=== PATIENT | female | born 1950 | race Caucasian/White ===

== ENCOUNTER → 2016-08-03 | Outpatient (CLI) | payer BC, OTHER | LOC: FIMAGING 08:42 | DX: Z12.31 Encounter for screening mammogram for malignant neoplasm of breast (principal) | CPT/HCPCS: G0202 ==

== ENCOUNTER → 2017-02-22 | Outpatient (CLI) | payer OTHER | LOC: FIMAGING 07:19 | PROVIDERS: ATTEND Surgery | DX: K44.9 Diaphragmatic hernia without obstruction or gangrene (principal); K21.9 Gastro-esophageal reflux disease without esophagitis ==

== ENCOUNTER 2017-03-25 05:16 | Observation (INO) | payer OTHER ==
[2017-03-25] MEDS ORDERED: LIDOCAINE 1% 2 ML INJ ID PRN (05:49)
[2017-03-25] MEDS ORDERED: LR 1,000 ML IV ONE (05:49)
[2017-03-25] MEDS ORDERED: cefOXitin SODIUM 2 GM in D5W 100 ML IV ONE (06:00)
[2017-03-25] MEDS ORDERED: fentaNYL 250 MCG/5 ML INJ ONE (07:01)
[2017-03-25] MEDS ORDERED: PROPOFOL 200 MG/20 ML VIAL ONE (07:02)
[2017-03-25] MEDS ORDERED: SUGAMMADEX SODIUM 200 MG/2 ML VIAL IVP ONE (07:03)
[2017-03-25] MEDS ORDERED: DEXAMETHASONE 4 MG/ML VIAL ONE (07:03)
[2017-03-25] MEDS ORDERED: LIDOCAINE 2% 5 ML SDV ONE (07:03)
[2017-03-25] MEDS ORDERED: ROCURONIUM 100 MG/10 ML VIAL ONE (07:03)
[2017-03-25] MEDS ORDERED: MIDAZOLAM 2 MG/2 ML VIAL IVP ONE (07:04)
--- NOTE | 2017-03-25 07:05 | PDANEPAE ---
ANE History of Present Illness arelis RASMUSSEN Past Medical History - Cardiovascular History Hx Hypertension: Yes Hx Arrhythmias: No Hx Chest Pain: No Hx Coronary Artery / Peripheral Vascular Disease: No Hx CHF / Valvular Disease: No Hx Palpitations: No Cardiovascular History Comment: pcp monitors bp meds - Pulmonary History Hx COPD: Yes Hx Asthma/Reactive Airway Disease: Yes Hx Recent Upper Respiratory Infection: No Hx Oxygen in Use at Home: No Hx Sleep Apnea: Yes Sleep Apnea Screening Result - Last Documented: Positive Pulmonary History Comment: LASHONDA POS- instructed pt to bring cpap to hospital. see's dr crockett- unsure if she has asthma or copd - Neurologic History Hx Cerebrovascular Accident: No Hx Seizures: No Hx Dementia: No Neurologic History Comment: LOWER BACK - DDD - Endocrine History Hx Diabetes: No Hypothyroid: Yes Obesity: yes Endocrine History Comment: hypothyroidism - Renal History Hx Renal Disorders: Yes Renal History Comment: KIDNEY STONE X1 - Liver History Hx Hepatic Disorders: No - Neurological & Psychiatric Hx Hx Neurological and Psychiatric Disorders: No Neurological / Psychiatric History Comment: ANXIETY - Cancer History Hx Cancer: Yes Cancer History Comment: BASAL CELL SKIN CA - Congenital Disorder History Hx Congenital Disorders: No - GI History Hx Gastrointestinal Disorders: Yes Gastrointestinal History Comment: REFLUX. hx of POLYPS. hx of HEMORRHOIDS - Other Health History Other Health History: wears glasses for close up only - Chronic Pain History Chronic Pain: No - Surgical History Prior Surgeries: left tka 2015. TUBAL LIGATION. LAP FOR ENDOMETRIOSIS. X 2 HERNIA. BASAL CELL CA REM NOSE. LI FOOT NEUROMA REM. KIMBERLEY. KIDNEY STONE, URETER STENT AND REM ANE Review of Systems Review of Systems: - Exercise capacity METS (RN): 4 METS ANE Patient History - Allergies Allergies/Adverse Reactions: No Known Allergies Allergy (Verified 03/21/17 11:59) - Home Medications Home Medications: RX: Estradiol [Estradiol 1 MG (*)] 0.0375 mg PO DAILY 11/30/14 [Last Taken 03/21] RX: Levothyroxine [Synthroid 125 mcg (*)] 112 mcg PO DAILY06 11/30/14 [Last Taken 03/25/17 03:00] RX: Omeprazole [Prilosec 20 mg] 20 mg PO DAILY 11/30/14 [Last Taken 03/25/17 03: 00] RX: Valsartan [Diovan (*)] 80 mg PO DAILY 08/18/15 [Last Taken 03/25/17 03:00] Aspirin 81mg (*) 03/21/17 [Last Taken 03/21/17] Herbals/Supplements -Info Only 03/21/17 [Last Taken 03/21/17] Symbicort 160-4.5 Mcg Inh (*) IH 03/21/17 [Last Taken 03/25/17 03:00] - NPO status NPO Since - Liquids (Date): 03/25/17 NPO Since - Liquids (Time): 03:00 NPO Since - Solids (Date): 03/24/17 NPO Since - Solids (Time): 19:00 - Smoking Hx Smoking Status: Former smoker - Family Anes Hx Family Hx Anesthesia Complications: NONE ANE Labs/Vital Signs - Vital Signs Blood Pressure: 135/76 Heart Rate: 84 Respiratory Rate: 16 O2 Sat (%): 94 Height: 157.48 cm Weight: 77.111 kg ANE Physical Exam - Airway Neck exam: FROM Mallampati Score: Class 1 Mouth exam: normal dental/mouth exam - Pulmonary Pulmonary: no respiratory distress - Cardiovascular Cardiovascular: regular rate and rhythym - ASA Status ASA Status: III ANE Anesthesia Plan Anesthesia Plan: general endotracheal anesthesia
[2017-03-25] MEDS ORDERED: BUPIVACAINE 0.5% 30 ML SDV ONE (07:10)
[2017-03-25] MEDS ORDERED: HEPARIN 1000 UNIT/1 ML MDV ONE (07:10)
[2017-03-25] MEDS ORDERED: ceFAZolin 1 GM/5 ML SYR ONE (07:11)
[2017-03-25] MEDS ORDERED: METOCLOPRAMIDE 10 MG/2 ML VIAL IVP PRN (08:46)
[2017-03-25] MEDS ORDERED: LR 500 ML IV PRN (08:46)
[2017-03-25] MEDS ORDERED: ONDANSETRON 4 MG/2 ML VIAL IVP PRN ×2 (08:46→09:11)
[2017-03-25] MEDS ORDERED: ACETAMINOPHEN 500 MG TAB PO PRN (08:46)
[2017-03-25] MEDS ORDERED: HYDROCODONE/APAP 5/325 TAB PO PRN ×2 (08:46→09:11)
[2017-03-25] MEDS ORDERED: ALBUTEROL 3 ML DEYVIAL IH PRN (08:46)
[2017-03-25] MEDS ORDERED: OXYCODONE/APAP 5/325 TAB PO PRN (08:46)
[2017-03-25] MEDS ORDERED: NALOXONE HCL 0.4 MG/ML INJ IVP PRN ×2 (08:46→08:47)
[2017-03-25] MEDS ORDERED: PROMETHAZINE HCL 25 MG/ML INJ IVP PRN (08:46)
[2017-03-25] MEDS ORDERED: HYDROmorphone HCL/NS/PF 0.4 MG/2 ML SYR IVP PRN (09:11)
--- NOTE | 2017-03-25 09:15 | PDHPUP ---
History & Physical Update H&P update statement: This history and physical update is based on an assessment of the patient which was completed after admission or registration (within 24 hours), but prior to the surgery/procedure. H&P update: H&P reviewed & patient examined, no change in patient's condition since H&P completed
--- NOTE | 2017-03-25 09:17 | POSTOPPROG ---
Post Op Note Date of Operation: 03/25/17 Surgeon: John Saunders Dealer Accounts Investigator: Dior Jama Anesthesiologist: Nakul Ahuja Anesthesia: GET(General Endotracheal) Pre-op Diagnosis: hiatal hernia, GERD, RLQ pain Post-op Diagnosis: same Procedure: lap hiatal hernia repair with arelis fundoplication and RLQ exploration Findings: moderate hiatal hernia, ~1/4-1/3 stomach in chest, RLQ adhesions Inf/Abcess present in the surg proc area at time of surgery?: No EBL: Minimal Complications: none Specimen(s): none
[2017-03-25] MEDS ORDERED: HYDROmorphONE/DILAUDID 1 MG/ML INJ ONE (09:22)
[2017-03-25] MEDS ORDERED: ONDANSETRON 4 MG/2 ML VIAL ONE (09:22)
[2017-03-25] MEDS ORDERED: fentaNYL 100 MCG/2 ML INJ ONE (09:22)
--- NOTE | 2017-03-25 09:22 | POSTANESTH ---
Post Anesthetic Evaluation Cardiovascular Status: Normal, Stable Respiratory Status: Normal, Stable Level of Consciousness/Mental Status: Can Participate in Eval Pain Control: Adequate, Prn Tx Ordered Nausea/Vomiting Control: Adequate, Prn Tx Ordered Complications Possibly Related to Anesthesia: None Noted
[2017-03-25] MEDS: fentaNYL 100 MCG/2 ML INJ IVP PRN ×2 (09:27→11:28)
[2017-03-25] MEDS: HYDROmorphONE/DILAUDID 1 MG/ML INJ IVP PRN ×2 (09:29→09:55)
[2017-03-25] MEDS ORDERED: ALBUTEROL 3 ML DEYVIAL ONE (09:42)
[2017-03-25] MEDS ORDERED: LORazepam 2 MG/ML INJ ONE (10:58)
[2017-03-25] MEDS ORDERED: LORazepam 2 MG/ML INJ IV ONE (11:00)
[2017-03-25] MEDS: NS W/ 20 KCl/L 1,000 ML IV SCH ×2 (11:54→22:24)
[2017-03-25] MEDS: KETOROLAC 15 MG/1 ML SDV IVP SCH ×3 (11:54→23:33)
[2017-03-25] MEDS: PROMETHAZINE HCL 25 MG/ML INJ IVP PRN ×2 (14:14→22:25)
[2017-03-25] MEDS: BUDESONIDE/FORMOTEROL 160/4.5 60 PUFFS/MDI IH SCH (21:09)
--- NOTE | 2017-03-25 21:27 | SOAPPROG ---
SODANAY Progress Note Assessment/Plan: Assessment: sp lap arelis/ doing well/ afebrile/ tolerating clears Plan:advance diet and home soon 03/25/17 21:25 Objective: Vital Signs Temp Pulse Resp BP Pulse Ox 36.7 C 81 16 93/59 L 93 03/25/17 19:48 03/25/17 19:48 03/25/17 19:48 03/25/17 19:48 03/25/17 19:48 03/24/17 03/25/17 03/26/17 05:59 05:59 05:59 Intake Total 1550 Output Total 75 Balance 1475 ICD10 Worksheet Patient Problems: Problems Problem Status Onset Primary osteoarthritis of left knee Acute
[2017-03-26] MEDS ORDERED: LEVOTHYROXINE 112 MCG TAB PO SCH (06:00)
[2017-03-26 06:25] LABS: ANION GAP 9 mEq/L (8-16); CALCIUM 8.2 mg/dL (8.5-10.4); CARBON DIOXIDE 24 mEq/l (22-31); CHLORIDE 111 mEq/L (97-110); CREATININE 0.7 mg/dL (0.6-1.0); GLOMERULAR FILTRATION RATE > 60; GLUCOSE 94 mg/dL (70-100); POTASSIUM 4.3 mEq/L (3.5-5.2); SODIUM 144 mEq/L (134-144)
[2017-03-26] MEDS: KETOROLAC 15 MG/1 ML SDV IVP SCH ×2 (06:26→11:50)
[2017-03-26 06:35] LABS: HEMATOCRIT 37.3 % (38.0-47.0); HEMOGLOBIN 12.9 g/dL (12.6-16.3)
[2017-03-26 08:13] VITALS: BP 97/56; RESP 14; TEMP 98
[2017-03-26] MEDS: BUDESONIDE/FORMOTEROL 160/4.5 60 PUFFS/MDI IH SCH (08:22)
[2017-03-26 08:28] VITALS: PULSE 80; O2SAT 93
[2017-03-26] MEDS ORDERED: VALSARTAN 80 MG TAB PO SCH (09:00)
[2017-03-26] MEDS ORDERED: PANTOPRAZOLE SODIUM 40 MG TAB PO SCH (09:00)
--- NOTE | 2017-03-26 11:07 | SOAPPROG ---
SHELL Progress Note Assessment/Plan: Assessment/Plan: 66 Y F s/p lap hiatal hernia repair and arelis fundoplication, also, exploration of RLQ due to pain with findings of adhesions. POD#1. Doing well. Seen with Dr. Saunders. Advance diet. Probable d/c to home today. Also, discussed lysis of adhesions for RLQ findings. Could do this if depending upon how limiting her pain is. May not resolve her pain. She will think about it and we can discuss it further in the office if she'd like. S: minimal pain. tolerating clears O: alert, nad mmm no wob inc cdi abd soft 03/26/17 11:03 Objective: Vital Signs Temp Pulse Resp BP Pulse Ox 36.7 C 80 14 97/56 L 93 03/26/17 08:10 03/26/17 08:27 03/26/17 08:27 03/26/17 08:10 03/26/17 08:27 Laboratory Results 03/26/17 05:15 03/26/17 05:15 03/25/17 03/26/17 03/27/17 05:59 05:59 05:59 Intake Total 3771 Output Total 75 Balance 3696 ICD10 Worksheet Patient Problems: Problems Problem Status Onset Primary osteoarthritis of left knee Acute
[2017-03-26] MEDS ORDERED: ASPIRIN 81 MG CHEWABLE TAB PO SCH (12:00)
--- NOTE | 2017-03-26 16:50 | ASDISCHSUM ---
Discharge Information Plan Status:Home with No Needs Medically Cleared to Leave:03/25/2017 Discharge Date:03/26/2017 11:50 AM CM D/C Disposition: ADT D/C Disposition:Home, Routine, Self-Care Projected Discharge Date:03/26/2017 12:00 AM Transportation at D/C: Discharge Delay Reason: Follow-Up Date:03/26/2017 12:00 AM Discharge Slot: Final Diagnosis: Placement Information Patient Contact Information Contact Name:JOLYNN Relationship: Address:[address] Work Phone: City:[place] Alternate Phone: [facility]/Zip Code:[place] [address] Email: Financial Information Financial Class:Medicare Advantage Plans Primary Plan Desc:[facility] ADVANTAGE PLANS Primary Plan Number:[id number] Secondary Plan Desc: Secondary Plan Number: Assessment Information Intervention Information Intervention Type:*BOB-Signed Date of Service:03/26/2017 11:26 AM Patient Type:Observation Staff Member:Lori Quinn Hours: Discipline: Severity: Comment:
[2017-03-27] MEDS ORDERED: ENOXAPARIN 40 MG/0.4 ML SYR SC SCH (09:00)
[2017-03-31] MEDS ORDERED: ESTRADIOL VIVELLE 0.0375 MG PATCH TD SCH (08:00)
== END 2017-03-26 11:50 | disposition home or self-care (01) ==
LOC: F3E 05:16
PROVIDERS: ADMIT Surgery; ATTEND Surgery
PROC: 0DV44ZZ Restriction of Esophagogastric Junction, Percutaneous Endoscopic Approach (ICD-10-PCS; principal; 2017-03-25 07:15)
PROC: 0DJW4ZZ Inspection of Peritoneum, Percutaneous Endoscopic Approach (ICD-10-PCS; principal; 2017-03-25 07:15)
DX: K44.9 Diaphragmatic hernia without obstruction or gangrene (principal); N73.6 Female pelvic peritoneal adhesions (postinfective); R10.31 Right lower quadrant pain; K21.9 Gastro-esophageal reflux disease without esophagitis; I10 Essential (primary) hypertension; K58.0 Irritable bowel syndrome with diarrhea; F41.9 Anxiety disorder, unspecified; E66.9 Obesity, unspecified; Z68.38 Body mass index [BMI] 38.0-38.9, adult; E03.9 Hypothyroidism, unspecified; M85.80 Other specified disorders of bone density and structure, unspecified site; G47.33 Obstructive sleep apnea (adult) (pediatric); Z79.82 Long term (current) use of aspirin; Z87.891 Personal history of nicotine dependence; Z87.442 Personal history of urinary calculi; Z82.49 Family history of ischemic heart disease and other diseases of the circulatory system; Z96.652 Presence of left artificial knee joint
CPT/HCPCS: 43280; G0378; J0690; J0694; J1100; J1170; J1885; J2060; J2250; J2405; J2550; J2704; J3010

== ENCOUNTER → 2017-07-15 | Outpatient (CLI) | payer OTHER | LOC: FIMAGING 09:37 | PROVIDERS: ATTEND Internal Medicine | DX: M50.323 Other cervical disc degeneration at C6-C7 level (principal) ==

== ENCOUNTER → 2017-08-16 | Outpatient (CLI) | payer OTHER | LOC: FIMAGING 11:59 | PROVIDERS: ATTEND Internal Medicine | DX: Z12.31 Encounter for screening mammogram for malignant neoplasm of breast (principal) ==

== ENCOUNTER 2017-12-10 05:52 | Observation (INO) | payer OTHER ==
--- NOTE | 2017-12-02 18:08 | GHP ---
[f rep st] PREOP HISTORY AND PHYSICAL DATE OF ADMISSION: 12/10/2017 She will be an a.m. admission for surgery on December 10, 2017. PROBLEM: Right knee severe patellofemoral arthritis. HISTORY OF PRESENT ILLNESS: The patient is a 67-year-old woman admitted for a right total knee arthr oplasty. I did her left total knee arthroplasty in December of 2016. She has had a very good resul t. She is having progressive severe pain in her right knee. Her pain is worse going up and down sta irs. Her activities are very restricted. She is admitted for a right total knee arthroplasty. PAST MEDICAL HISTORY: She is treated for hypothyroidism and hormone replacement therapy. No history of heart disease, DVT, hepatitis, MRSA staph infections, or bleeding problems. She has sleep apnea and uses a CPAP machine. CURRENT MEDICATIONS: One baby aspirin a day. She will stop that in preparation for her surgery. Junie markham is also taking estrogen by a transdermal patch, fluconazole for nasal allergies, levothyroxine 112 mcg per day, omeprazole 20 mg a day for gastroesophageal reflux disease. ALLERGIES: Drug allergies: None. Metal allergy: None. Latex allergy: None. SOCIAL HISTORY: The patient is . She is retired. She does not smoke cigarettes or drink alc ohol. FAMILY HISTORY: Positive for cancer, arthritis, and heart disease. PHYSICAL EXAMINATION: GENERAL: Height 5 feet 1 inch, weight 196 pounds, BMI 37. EYES: Conjunctiva e and sclerae are clear. Pupils are round and reactive. MOUTH: Good oral hygiene. No loose teeth. CHEST: Clear. HEART: Regular rhythm. No murmurs. EXTREMITIES: Pertinent findings are limited to her right knee. She has a small effusion. Full extension to 120 degrees of flexion. Coarse hurtado llofemoral crepitation with active knee extension. Her ligaments are stable. Films show very severe degenerative arthritis in the right patellofemoral joint. She has erosion of the lateral facet of her patella. Her left total knee looks good. IMPRESSION: On admission: 1. Right knee degenerative arthritis with severe patellofemoral arthritis. She is prepared for a ri ght total knee arthroplasty. 2. Three years status post left total knee arthroplasty with a good result. 3. Treatment for hypothyroidism. 4. Obesity. PLAN: She will undergo a right total knee arthroplasty. The surgery has been described to her, incl uding the risks, complications, expectations, and recovery time. I stressed the importance of postop erative physical therapy. I have advised her that 75% of people are very happy with the results of a total knee replacement, but a small percentage of people are not satisfied. This is usually because of persistent pain. All her questions have been answered, and she consents to surgery. She would l stella to be discharged on the day of surgery. /[id number]/MODL
[2017-12-10] MEDS ORDERED: POVIDONE-IODINE 20 ML in SODIUM CL IRRIG SOLUTION 500 ML IRR ONE (06:00)
[2017-12-10] MEDS ORDERED: ROPIVACAINE 0.2% 80 MG, EPINEPHrine 0.2 MG, KETOROLAC TROMETHAMINE 30 MG in SYRINGE 0 ML IU ONE (06:00)
[2017-12-10] MEDS ORDERED: TRANEXAMIC ACID 1,000 MG in NS 100 ML IV ONE (06:00)
[2017-12-10] MEDS ORDERED: TRANEXAMIC ACID 3,000 MG in NS (SYRINGE) 50 ML IRR ONE (06:00)
[2017-12-10] MEDS ORDERED: GABAPENTIN 300 MG CAP PO ONE (06:04)
[2017-12-10] MEDS ORDERED: ACETAMINOPHEN 325 MG TAB PO ONE (06:04)
[2017-12-10] MEDS ORDERED: ceFAZolin 2 GM/DEXTROSE 100 ML IV ONE (06:04)
[2017-12-10] MEDS ORDERED: FAMOTIDINE 20 MG TAB PO ONE (06:04)
[2017-12-10] MEDS ORDERED: ONDANSETRON 4 MG/2 ML VIAL IVP ONE (06:04)
[2017-12-10] MEDS ORDERED: DEXAMETHASONE 4 MG/ML VIAL IVP ONE (06:04)
[2017-12-10] MEDS ORDERED: LIDOCAINE 1% 2 ML INJ ID PRN (06:05)
[2017-12-10] MEDS ORDERED: LR 1,000 ML IV ONE (06:05)
[2017-12-10] MEDS ORDERED: LIDOCAINE 1% 2 ML INJ ONE (06:17)
[2017-12-10] MEDS ORDERED: TRANEXAMIC ACID 3,000 MG/50 ML BAG IRR ONE (06:40)
[2017-12-10] MEDS ORDERED: VANCOMYCIN 1 GM VIAL ONE (06:40)
[2017-12-10] MEDS ORDERED: ceFAZolin 1 GM/5 ML SYR ONE (06:41)
[2017-12-10] MEDS ORDERED: SCOPOLAMINE HYDROBROMIDE 1 MG/3 DAYS PATCH TD ONE (07:01)
--- NOTE | 2017-12-10 07:04 | PDHPUP ---
History & Physical Update H&P update statement: This history and physical update is based on an assessment of the patient which was completed after admission or registration (within 24 hours), but prior to the surgery/procedure. H&P update: H&P reviewed & patient examined
[2017-12-10] MEDS ORDERED: MIDAZOLAM 2 MG/2 ML VIAL ONE (07:05)
[2017-12-10] MEDS ORDERED: fentaNYL 100 MCG/2 ML INJ ONE (07:07)
[2017-12-10] MEDS ORDERED: PROPOFOL/EMULSION 500 MG/50 ML BOTTLE IV ONE (07:07)
[2017-12-10] MEDS ORDERED: ePHEDrine SULFATE 25 MG/5 ML SYR ONE (07:30)
--- NOTE | 2017-12-10 07:45 | PDANEPAE ---
ANE Past Medical History - Cardiovascular History Hx Hypertension: Yes Hx Arrhythmias: No Hx Chest Pain: No Hx Coronary Artery / Peripheral Vascular Disease: No Hx CHF / Valvular Disease: No Hx Palpitations: No Cardiovascular History Comment: pcp monitors bp meds - Pulmonary History Hx COPD: Yes Hx Asthma/Reactive Airway Disease: Yes Hx Recent Upper Respiratory Infection: No Hx Oxygen in Use at Home: No Hx Sleep Apnea: Yes Sleep Apnea Screening Result - Last Documented: Positive Pulmonary History Comment: LASHONDA POS- instructed pt to bring cpap to hospital. see's dr crockett- unsure if she has asthma or copd - Neurologic History Hx Cerebrovascular Accident: No Hx Seizures: No Hx Dementia: No Neurologic History Comment: LOWER BACK - DDD - Endocrine History Hx Diabetes: No Endocrine History Comment: hypothyroidism - Renal History Hx Renal Disorders: Yes Renal History Comment: KIDNEY STONE X1 - Liver History Hx Hepatic Disorders: No - Neurological & Psychiatric Hx Hx Neurological and Psychiatric Disorders: No Neurological / Psychiatric History Comment: ANXIETY - Cancer History Hx Cancer: Yes Cancer History Comment: BASAL CELL SKIN CA - Congenital Disorder History Hx Congenital Disorders: No - GI History Hx Gastrointestinal Disorders: Yes Gastrointestinal History Comment: REFLUX. hx of POLYPS. hx of HEMORRHOIDS - Other Health History Other Health History: wears glasses for close up only - Chronic Pain History Chronic Pain: No - Surgical History Prior Surgeries: left tka 2014. TUBAL LIGATION. LAP FOR ENDOMETRIOSIS. X 2 HERNIA. BASAL CELL CA REM NOSE. LI FOOT NEUROMA REM. KIMBERLEY. KIDNEY STONE, URETER STENT AND REM ANE Review of Systems Review of Systems: - Exercise capacity METS (RN): 4 METS ANE Patient History - Allergies Allergies/Adverse Reactions: No Known Allergies Allergy (Verified 03/21/17 11:59) - Home Medications Home Medications: Omeprazole [Prilosec 20 mg] 20 mg PO DAILY 11/30/14 [Last Taken 12/03/17] Aspirin [Aspirin 81mg (*)] 81 mg PO DAILY@12 03/21/17 [Last Taken 12/03/17] Budesonide/Formoterol 160/4.5 [Symbicort 160-4.5 Mcg Inh (*)] 2 puffs IH BID 10/29 [Last Taken 12/07/17] Herbals/Supplements -Info Only 1 ea PO DAILY 03/21/17 [Last Taken 12/03/17] Estradiol [Vivelle-Dot 0.0375MG (*)] 0.0375 mg TD GOODMAN@08 03/25/17 [Last Taken ] Levothyroxine [Synthroid 112 mcg (*)] 112 mcg PO DAILY06 03/25/17 [Last Taken ] Multivitamins [Multivitamin (*)] 1 each PO DAILY 03/25/17 [Last Taken 12/03/17] Fortine-3 Fatty Acids [Fish Oil 1000 mg (*)] 1,000 mg PO DAILY 03/25/17 [Last Taken 12/03/17] - NPO status NPO Since - Liquids (Date): 12/09/17 NPO Since - Liquids (Time): 20:00 NPO Since - Solids (Date): 12/10/17 NPO Since - Solids (Time): 20:00 - Smoking Hx Smoking Status: Former smoker - Family Anes Hx Family Hx Anesthesia Complications: NONE ANE Labs/Vital Signs - Vital Signs Height: 154.94 cm Weight: 76.657 kg ANE Physical Exam - Airway Mallampati Score: Class 2 - ASA Status ASA Status: III ANE Anesthesia Plan Anesthesia Plan: spinal Regional Anesthesia: adductor canal FNB Urgent/Emergent Case: Cathryn merrill completed preop but documented later for safe timely pt care
[2017-12-10] MEDS ORDERED: PROPOFOL 200 MG/20 ML VIAL ONE (08:30)
[2017-12-10] MEDS ORDERED: ROPIVACAINE HCL 150 MG/30 ML INJ ONE (08:42)
--- NOTE | 2017-12-10 09:01 | POSTOPPROG ---
Post Op Note Date of Operation: 12/10/17 Surgeon: Eloy Warner Chemical Processor: Manasa Anesthesiologist: Dr. Mamadou Harman Post-op Diagnosis: Right knee severe arthritis Procedure: Right total knee arthroplasty Inf/Abcess present in the surg proc area at time of surgery?: No EBL: 50-100 (Adductor canal block in PACU)
[2017-12-10] MEDS ORDERED: NS 500 ML IV PRN (09:09)
[2017-12-10] MEDS ORDERED: CYCLOBENZAPRINE 10 MG TAB PO PRN (09:09)
[2017-12-10] MEDS ORDERED: MAGNESIUM HYDROXIDE 30 ML UDCUP PO PRN (09:09)
[2017-12-10] MEDS ORDERED: BISACODYL 10 MG SUPP PR PRN (09:09)
[2017-12-10] MEDS ORDERED: ONDANSETRON DISINTEGRATING 4 MG TAB PO PRN (09:09)
[2017-12-10] MEDS ORDERED: METOCLOPRAMIDE 10 MG/2 ML VIAL IVP PRN (09:09)
[2017-12-10] MEDS ORDERED: diphenhydrAMINE 25 MG CAP PO PRN (09:09)
[2017-12-10] MEDS ORDERED: PROMETHAZINE HCL 25 MG/ML INJ IVP PRN ×2 (09:09→09:16)
[2017-12-10] MEDS ORDERED: DIPHENOXYLATE/ATROPINE LOMOTIL 1 TAB PO PRN (09:09)
[2017-12-10] MEDS ORDERED: ONDANSETRON 4 MG/2 ML VIAL IVP PRN ×2 (09:09→09:16)
[2017-12-10] MEDS ORDERED: POLYETHYLENE GLYCOL 3350 17 GM PKT PO PRN (09:09)
[2017-12-10] MEDS ORDERED: LACTULOSE 20 GM/30 ML UDCUP PO PRN (09:09)
[2017-12-10] MEDS ORDERED: TEMAZEPAM 15 MG CAP PO PRN (09:09)
[2017-12-10] MEDS ORDERED: oxyCODONE IR 5 MG TAB PO PRN (09:09)
[2017-12-10] MEDS ORDERED: PROMETHAZINE HCL 25 MG SUPPR PR PRN (09:09)
[2017-12-10] MEDS ORDERED: traMADol 50 MG TAB PO PRN (09:09)
[2017-12-10] MEDS ORDERED: fentaNYL 100 MCG/2 ML INJ IVP PRN (09:16)
[2017-12-10] MEDS ORDERED: NALOXONE HCL 0.4 MG/ML INJ IVP PRN (09:16)
[2017-12-10] MEDS ORDERED: LR 500 ML IV PRN (09:16)
--- NOTE | 2017-12-10 09:17 | POSTANESTH ---
Post Anesthetic Evaluation Cardiovascular Status: Normal, Stable Respiratory Status: Similar to Pre-op Cond. Level of Consciousness/Mental Status: Can Participate in Eval Pain Control: Adequate, Prn Tx Ordered Nausea/Vomiting Control: Adequate, Prn Tx Ordered Complications Possibly Related to Anesthesia: None Noted
[2017-12-10] MEDS ORDERED: LR 1,000 ML IV SCH (09:30)
--- NOTE | 2017-12-10 09:45 | GOP ---
[f rep st] OPERATIVE REPORT DATE OF OPERATION: 12/10/2017 SURGEON: Eloy Warner MD ENGINE TURNER: JOSE Valerio. Praneeth Sapp CFA. ANESTHESIA: Combination of Marcaine, spinal, IV sedation, and adductor canal block. ANESTHESIOLOGIST: Mamadou Harman MD. PREOPERATIVE DIAGNOSIS: Right knee severe degenerative arthritis primarily involving the patellofemo ral joint. POSTOPERATIVE DIAGNOSIS: Right knee severe degenerative arthritis primarily involving the patellofem oral joint. PROCEDURE PERFORMED: A right total knee arthroplasty, cemented, Marrero and Nephew Journey II, posteri or stabilized. FINDINGS: DESCRIPTION OF PROCEDURE: The patient was given 2 g of IV Ancef preoperatively within 60 minutes of surgery. She also received IV tranexamic acid at a dose of 1000 mg. She was placed on the operating room table and given spinal anesthesia with Marcaine by Dr. Harman. She was then placed supine and given IV sedation. A Segundo catheter was not used. She wore a stocking and SCD on the nonoperative l eg. A bolster was placed under the right hip to prevent excessive external rotation of the leg. Her right lower extremity was prepped with ChloraPrep from the upper thigh tourniquet to the tips of the toes. It was draped free using sterile sheets, stockinette, and Ioban plastic adhesive drape. The lower leg was wrapped with compressive Coban. The leg was exsanguinated with elevation and a 6-inch compressive wrap, and the pneumatic tourniquet was inflated to 300 mmHg. The World Health Organization time-out was performed to verify the correct patient identity and the c orrect surgical side and site. The [place] time-out was also performed. The Md7ayo leg holding device was sterilely attached to the operating room table and used throughout the procedure to help position the knee. A slightly curved midline incision was made centered on the patella. Subcutaneous tissues were sharply divided, and hemostasis was obtained using electrocauter y. A subcutaneous flap was developed, and the capsule and synovium were opened in a medial parapatel lar fashion. Extensive degenerative changes were present in the patellofemoral joint and in the late ral compartment. The lateral facet of her patella was significantly eroded. The medial capsule and periosteum were elevated off the rim of the medial tibial plateau around to the posteromedial corner. There was very limited release of her medial collateral ligament. In order to improve exposure, her patella was prepared first. The original thickness of the patella was measured. Peripheral osteophytes were removed. I cut a flat surface on the back of the patella. Because of the erosion on the lateral facet, I did not remove any additional bone from the lateral facet, but simply flattened the surface. She was sized for a 35 mm round resurfacing component. I r emoved enough bone from the patella such that the remaining bone plus the thickness of the patellar c omponent recreated the original thickness of the patella. A composite thickness was 21 mm. The intramedullary alignment guide system was used to set up the distal femoral cut. The distal femu r was cut in 6 degrees of valgus. She did not have a preoperative flexion contracture, and I did not make a +2 mm cut on the distal femur. The sizing jig was used to determine proper femoral sizing. She was a true size 4 without a shift. The 5-in-1 cutting block was applied, and the anterior and po sterior condylar cuts and chamfer cuts were made. The final jig was used to remove the central porti on of the distal femur to accommodate the posterior stabilized femoral component. I was careful to d etermine proper rotation by referencing off Whitesides line and other bony landmarks. Each cut was c hecked for accuracy before and after it was made. Her femur was sized for a size 4 posterior stabili zed component. Next, the tibia was prepared. The proximal tibial cut was made using the extramedullary alignment gu arely system. The cut was made in a few degrees of posterior slope. I was careful to achieve proper v arus valgus alignment and proper rotation. The posterior compartment was cleared of meniscal remnant s. Osteophytes were removed from the back of her femoral condyles. I checked the flexion, extension gaps, and they were equal, balanced and rectangular. The tibia was sized for a size 3 component. W ith the trial components in place, I selected a 10 mm trial polyethylene posterior stabilized tibial insert. The knee came to full extension and flexed to 125 degrees. The collateral ligaments were st able and balanced in 90 degrees of flexion and full extension. The trial patellar button was applied , and tracking was checked. She had a definite tendency for lateral subluxation and lateral tilt. I went ahead and did a limited lateral release. Following this, her tracking was much better. 40 mL of the joint anesthetic cocktail were injected into the posterior capsule, the periarticular st ructures, the quadriceps muscle and tendon areas, and the subcutaneous tissues along the skin edges. The surfaces were prepared for cementing. They were carefully cleaned with the pulsating lavage irri gation and thoroughly dried. The CarboJet device was used to blow dry the cancellous surfaces. A do uble batch of high viscosity methylmethacrylate cement with 2 g of powdered vancomycin added was mixe d. While it was still in a doughy state, all 3 components were cemented in place. Excess cement was removed before it hardened. The 10 mm tibial trial insert was re-tried and was the proper thickness. The actual component was in serted and locked into place. The knee was thoroughly irrigated 1 final time with a dilute Betadine solution. The tourniquet was deflated and the total tourniquet time was 48 minutes. 50 cc of tranex amic acid was instilled into the joint. The wound was packed with a lap and the knee was wrapped wit h a 6 inch SHANNON wrap for about 3 or 4 minutes. The vastus medialis portion of the extensor mechanism was repaired with several interrupted figure-of -eight #2 FiberWire sutures. The capsule and synovium were closed first with multiple interrupted fi [id number] 0 PDS sutures followed by a running, #2 barbed Ethicon Stratafix PDO suture. The subcu taneous tissues were closed with a running 0 barbed Ethicon Stratafix Monoderm suture. The skin was closed with a running 3-0 barbed Ethicon Stratafix Monoderm subcuticular suture. The skin was sealed with half-inch Steri-Strips. The wound was covered with a large Mepilex water-proof dressing and a 6-inch compressive wrap. A long-leg KRISTI stocking and SCD were applied, followed by the cooling devic e. The patient wore a stocking and SCD on the opposite leg during the procedure. The sacral Mepilex dressing was applied. I used a size 4 cemented Marrero and Nephew Oxinium posterior stabilized femoral component, a size 3 ce mented tibial base plate, a 10 mm posterior stabilized tibial insert, and a 35 mm cemented round all- polyethylene resurfacing patellar component. The estimated blood loss following deflation of the tourniquet was about 100 cc. The sponge and needle count were correct on 2 occasions. She was awakened from anesthesia, transferred to her hospital [facility], and taken to PACU in satisfacto ry condition. There were no recognized intraoperative complications. In the PACU, for additional po stoperative pain control, Dr. Harman performed an adductor canal block. Marquez Peña and Praneeth Sapp acted as surgical assistants. Their assistance was a medical necess ity for safe completion of the procedure. /[id number]/MODL
[2017-12-10] MEDS: KETOROLAC 15 MG/1 ML SDV IVP SCH ×2 (11:35→17:30)
[2017-12-10] MEDS: ACETAMINOPHEN 325 MG TAB PO SCH ×2 (11:35→17:29)
[2017-12-10] MEDS ORDERED: ceFAZolin 2 GM/DEXTROSE 100 ML IV SCH (15:00)
[2017-12-10 15:04] VITALS: BP 117/71
[2017-12-10] MEDS ORDERED: ASPIRIN 325 MG TAB PO SCH (21:00)
[2017-12-10] MEDS ORDERED: SENNOSIDES/DOCUSATE SODIUM TAB PO SCH (21:00)
[2017-12-10] MEDS ORDERED: FAMOTIDINE 20 MG TAB PO SCH (21:00)
[2017-12-10] MEDS ORDERED: BUDESONIDE/FORMOTEROL 160/4.5 60 PUFFS/MDI IH SCH (21:00)
[2017-12-11] MEDS ORDERED: LEVOTHYROXINE 112 MCG TAB PO SCH (06:00)
[2017-12-11] MEDS ORDERED: PANTOPRAZOLE SODIUM 40 MG TAB PO SCH (09:00)
[2017-12-11] MEDS ORDERED: FERROUS SULFATE 140 MG TAB.ER PO SCH (09:00)
[2017-12-15] MEDS ORDERED: ESTRADIOL VIVELLE 0.0375 MG PATCH TD SCH (08:00)
== END 2017-12-10 17:59 | disposition home or self-care (01) ==
LOC: F3N 05:52
PROVIDERS: ADMIT Orthopaedic Surgery; ATTEND Orthopaedic Surgery
PROC: 0SRC0JZ Replacement of Right Knee Joint with Synthetic Substitute, Open Approach (ICD-10-PCS; principal; 2017-12-10 07:15)
DX: M17.11 Unilateral primary osteoarthritis, right knee (principal)
CPT/HCPCS: 27447; 73560; 77073; 88311; 97110; 97161; 97165; C1713; C1776; G0378; G8978; G8979; G8980; G8987; G8988; J0171; J0690; J1100; J1885; J2250; J2405; J2704; J2795; J3010; J3370

== ENCOUNTER → 2018-01-13 | Outpatient (CLI) | payer OTHER | LOC: FIMAGING 14:37 | PROVIDERS: ATTEND Physician Assistant | DX: Z09 Encounter for follow-up examination after completed treatment for conditions other than malignant neoplasm (principal); Z96.653 Presence of artificial knee joint, bilateral ==

== ENCOUNTER → 2018-08-14 | Outpatient (CLI) | payer OTHER | LOC: FIMAGING 10:42 | PROVIDERS: ATTEND Internal Medicine | DX: Z13.820 Encounter for screening for osteoporosis (principal); M85.89 Other specified disorders of bone density and structure, multiple sites; E07.9 Disorder of thyroid, unspecified; Z78.0 Asymptomatic menopausal state ==